=== PATIENT | female | born 1950 | race Caucasian/White ===

== ENCOUNTER 2024-04-19 12:24 | Emergency (ER) | payer OTHER ==
[~2024-04-19] VITALS: Ht 165.1 cm; Wt 68.9 kg
== END 2024-04-19 17:44 | disposition home or self-care (01) ==
LOC: ER 12:26
DX: S50.01XA Contusion of right elbow, initial encounter (principal); W18.39XA Other fall on same level, initial encounter; Y93.89 Activity, other specified; Y92.59 Other trade areas as the place of occurrence of the external cause; Y99.9 Unspecified external cause status; Z88.2 Allergy status to sulfonamides; Z88.8 Allergy status to other drugs, medicaments and biological substances